=== PATIENT | female | born 1975 | race Caucasian/White ===

== ENCOUNTER 2019-04-15 15:42 | Emergency (ER) | payer SELFPAY ==
[2019-04-15 15:49] VITALS: BP 172/95; PULSE 114; RESP 16; TEMP 36.9; O2SAT 96; BMI 32.5
[2019-04-15 15:58] VITALS: RESP 16
--- NOTE | 2019-04-15 15:59 | PC.NURSE ---
pt has injury to right thumb, a coworker squeezed between her thumb and index finger and pt felt a pop. decreases ROM in thumb
--- NOTE | 2019-04-15 16:01 | ED_ITS ---
HPI - Extremity Problem General: Chief complaint: Extremity Injury, Upper Stated complaint: right hand pain Time Seen by Provider: 04/15/19 16:01 History of Present Illness: HPI Narrative: Patient comes in with pain and discomfort to the proximal right thumb. Patient reports that her thumb was bothering her and her friend at work was trying to pop it for her. Patient reports that she had increased pain and swelling after the manipulation of the thumb. Patient reports difficulty moving the thumb now. Patient appears well. Patient appears in moderate pain. Review of Systems General: Reports: 10 or more systems reviewed and unremarkable except in HPI and below Musc: Reports: joint pain PFSH ED PFSH: Social History Smoking and tobacco status: former smoker Physical Exam Const: COMMON NORMALS: no apparent distress and oriented x3 GENERAL JARRETT EARANCE: cooperative HENMT: COMMON NORMALS: normocephalic, external ears normal, EAC's normal, TM's normal bilaterally and external nose normal HEAD & SCALP: normal to inspection and normocephalic FACE & SINUS: normal facial exam NOSE: external nose normal GENERAL EAR: hearing not grossly impaired EXTERNAL EAR: Yes external ears normal EXTERNAL AUDITORY CANAL: EAC's normal TYMPANIC MEMBRANE: TM's normal bilaterally MOUTH: oral and palatal mucosa normal THROAT: posterior oropharynx normal Eye: COMMON NORMALS: PERRL and EOMs intact bilaterally PUPIL: Yes PERRL Neck/C-Spine: COMMON NORMALS: full ROM and no lymphadenopathy Lymph: LYMPHATIC: no lymphedema noted Chest: COMMONS NORMALS: inspection of chest normal and palpation of chest normal Resp: COMMON NORMALS: normal respiratory effort and clear to auscultation bilaterally AUSCULTATION: clear to auscultation bilaterally Cardio: COMMON NORMALS: regular rate and regular rhythm RATE: regular rate RHYTHM: regular rhythm GI: COMMON NORMALS: normal to inspection, nondistended, normoactive bowel sounds and non-tender : COMMON NORMALS: Yes no CVA tenderness BLADDER/KIDNEY EXAM: Yes no CVA tenderness Back/Pelvis: COMMON NORMALS: no CVA tenderness and thoracic and lumbar spine normal to inspection Extremity: GENERAL: Yes edema RIGHT UPPER EXTREMITY: Yes hand & digits (right proximal thumb tenderness, no dislocation noted) Neuro: COMMON NORMALS: oriented x3, moves all extremities and no focal motor deficits Psych: COMMON NORMALS: mental status grossly normal and cooperative Skin: COMMON NORMALS: no rashes or lesions noted GENERAL SKIN EXAM: no rashes or lesions noted Course Vital Signs: Vital signs: Vital Signs Temperature 98.5 F 04/15/19 15:49 Pulse Rate 114 H 04/15/19 15:49 Respiratory Rate 16 04/15/19 15:58 Blood Pressure 172/95 04/15/19 15:49 Pulse Oximetry 96 04/15/19 15:49 MDM - Extremity (Nontraumatic) MDM Narrative: Medical decision making narrative: Patient comes in today with complaints of right thumb pain. Patient reports that a friend try to adjust her thumb when it felt like it needed to be popped at work. On exam patient has normal range of motion of the thumb. Prompt capillary refill. No obvious deformity. Differential diagnosis includes fracture, sprain, dislocation. X- ray noted no acute fracture. Reviewed exam with patient with recommendations for splinting for comfort and Tylenol and ibuprofen for pain. Patient reports understanding and agreed to care plan. Discharge Plan Discharge Patient Disposition: Home, Self-Care Clinical Impression: Finger sprain Qualifiers: Encounter type: initial encounter Finger: thumb Sprain of finger site: metacarpophalangeal joint Laterality: right Qualified Code(s): S63.641A - Sprain of metacarpophalangeal joint of right thumb, initial encounter Condition: Stable Prescriptions: New ibuprofen 800 mg tablet 800 mg PO Q8H PRN (Reason: pain) Qty: 30 RF: 0 Discharge Orders: Discharge Order (Routine); Ordered 04/15/19 Ordered By: Lalo Collier Referrals: Gregoria Mota MD [Family Provider] - Discharge Diet: Usual diet Discharge Activity: Increase activity as tolerated Patient Instructions: Finger Sprain (ED) Activity Restrictions/Additional Instructions: Wear splint for comfort for the next week Increase activity as tolerated Ibuprofen and acetaminophen for pain Ice or heat for further treatment Follow-up with primary care in one week Coding Level of Care Code ED Machine Maintenance Servicer for [facility] Exam Comprehensive
--- NOTE | 2019-04-15 16:02 | XRR_ITS ---
PROCEDURE INFORMATION: Exam: XR Right Hand Exam date and time: 04/15/2019 4:30 PM Age: 43 years old Clinical indication: Pain; Finger(s); Right; Patient HX: RT thumb locked and coworker tried to unlock, causing it to pop. PT unable to bend thumb; Additional info: Right hand injury TECHNIQUE: Imaging protocol: XR Right hand. Views: 3 or more views. COMPARISON: No relevant prior studies available. FINDINGS: Bones/joints: Normal. Soft tissues: Normal. XR/XR hand RT min 3V* [id number] IMPRESSION: No acute findings.
[2019-04-15 17:01] VITALS: PULSE 78; RESP 17; O2SAT 95
== END 2019-04-15 17:01 | disposition home or self-care (01) ==
LOC: ER 17:21
PROVIDERS: Emergency Provider Nurse Practitioner Family; Family Provider Family Medicine; PCP Family Medicine
DX: S63.601A Unspecified sprain of right thumb, initial encounter (principal); Z87.891 Personal history of nicotine dependence; X50.0XXA Overexertion from strenuous movement or load, initial encounter; Y92.89 Other specified places as the place of occurrence of the external cause
CPT/HCPCS: 73130; 99281; 99283